=== PATIENT | male | born 1960 | race African-American/Black ===

== ENCOUNTER 2021-06-03 15:07 | Inpatient (IN) | payer OTHER ==
[2021-06-03 17:07] VITALS: BMI 31.1
[2021-06-03] MEDS ORDERED: METHOCARBAMOL 500 MG TABLET PO PRN (17:48)
[2021-06-03] MEDS ORDERED: ACETAMINOPHEN 325 MG TABLET (FP) PO PRN (17:48)
[2021-06-03] MEDS ORDERED: IBUPROFEN 400 MG TABLET (FP) PO PRN (17:48)
[2021-06-03] MEDS ORDERED: MAGNESIUM CITRATE 300 ML BOTTLE PO PRN (17:48)
[2021-06-03] MEDS ORDERED: ONDANSETRON *ODT* 4 MG TABLET SL PRN (17:48)
[2021-06-03] MEDS ORDERED: hydrOXYzine PAMOATE 25 MG CAPSULE (FP) PO PRN (17:48)
[2021-06-03] MEDS ORDERED: BISMUTH SUBSALICYLATE 524 MG/30 ML PO PRN (17:48)
[2021-06-03] MEDS ORDERED: MAGNESIUM HYDROX 2400MG/30ML ORAL SUSPENSION 30 ML CUP PO PRN (17:48)
[2021-06-03] MEDS ORDERED: MAG HYDROX/AL HYDROX/SIMETH 30 ML UNIT-DOSE CUP PO PRN (17:48)
[2021-06-03] MEDS: MELATONIN 5 MG TABLETS PO SCH (22:27)
[2021-06-03] MEDS: THIAMINE HCL 100 MG TABLET (FP) PO SCH (22:27)
[2021-06-04] MEDS ORDERED: chlordiazePOXIDE HCL 25 MG CAPSULE PO PRN (09:19)
[2021-06-04] MEDS: ASPIRIN 81 MG CHEWABLE TABLETS PO SCH (10:21)
[2021-06-04] MEDS: PRENATAL VITAMINS W/ FOLIC ACID TABLET (FP) PO SCH (10:21)
[2021-06-04 10:30] LABS: HEMATOCRIT 36.2 % (35.4-49); MCH 28.3 pg (25.7-33.7); MCHC 33.1 g/dl (32.0-35.9); MEAN CELL VOLUME 85.4 fl (80-96); MEAN PLT VOLUME 8.1 fl (7.5-11.1); PLATELET COUNT 237 10^3/uL (134-434); RBC 4.23 M/mm3 (4.00-5.60); RDW 15.2 % (11.9-15.9); WHITE BLOOD COUNT 3.2 K/mm3 (4.0-10.0)
[2021-06-04 10:35] LABS: CALCIUM 9.4 mg/dL (8.5-10.1)
[2021-06-04 10:36] LABS: ALBUMIN 3.2 g/dl (3.4-5.0)
[2021-06-04 10:37] LABS: BLOOD UREA NITROGEN 14.7 mg/dL (7-18)
[2021-06-04] MEDS: chlordiazePOXIDE HCL 25 MG CAPSULE PO SCH ×4 (10:41→22:28)
[2021-06-04] MEDS: ACETAMINOPHEN 325 MG TABLET (FP) PO PRN ×2 (10:43→23:30)
[2021-06-04 10:46] LABS: BILIRUBIN,TOTAL 0.7 mg/dL (0.2-1)
[2021-06-04] MEDS ORDERED: predniSONE 20 MG TABLET (UD) PO ONE (12:14)
[2021-06-04] MEDS: PANTOPRAZOLE 40 MG TABLET PO SCH (13:48)
[2021-06-04] MEDS: THIAMINE HCL 100 MG TABLET (FP) PO SCH (22:27)
[2021-06-04] MEDS: ATORVASTATIN CA 10 MG TABLET (FP) PO SCH (22:27)
[2021-06-04] MEDS: MELATONIN 5 MG TABLETS PO SCH (22:28)
[2021-06-05] MEDS: chlordiazePOXIDE HCL 25 MG CAPSULE PO SCH ×4 (06:32→22:19)
[2021-06-05] MEDS ORDERED: predniSONE 10 MG TABLET (UD) PO ONE (10:00)
[2021-06-05] MEDS: PRENATAL VITAMINS W/ FOLIC ACID TABLET (FP) PO SCH (10:03)
[2021-06-05] MEDS: ASPIRIN 81 MG CHEWABLE TABLETS PO SCH (10:04)
[2021-06-05] MEDS: PANTOPRAZOLE 40 MG TABLET PO SCH (10:05)
[2021-06-05] MEDS: ACETAMINOPHEN 325 MG TABLET (FP) PO PRN ×2 (10:29→22:22)
[2021-06-05] MEDS: CHOLECALCIFEROL (VIT D3) 1,000 UNIT (25 MCG) TABLET PO SCH (13:59)
[2021-06-05] MEDS: THIAMINE HCL 100 MG TABLET (FP) PO SCH (22:20)
[2021-06-05] MEDS: ATORVASTATIN CA 10 MG TABLET (FP) PO SCH (22:20)
[2021-06-05] MEDS: MELATONIN 5 MG TABLETS PO SCH (22:20)
[2021-06-06] MEDS: chlordiazePOXIDE HCL 25 MG CAPSULE PO SCH ×4 (06:01→22:34)
[2021-06-06] MEDS ORDERED: predniSONE 20 MG TABLET (UD) PO ONE (10:00)
[2021-06-06] MEDS: CHOLECALCIFEROL (VIT D3) 1,000 UNIT (25 MCG) TABLET PO SCH (11:31)
[2021-06-06] MEDS: PANTOPRAZOLE 40 MG TABLET PO SCH (11:31)
[2021-06-06] MEDS: PRENATAL VITAMINS W/ FOLIC ACID TABLET (FP) PO SCH (11:31)
[2021-06-06] MEDS: ASPIRIN 81 MG CHEWABLE TABLETS PO SCH (11:31)
[2021-06-06] MEDS: ALBUTEROL SO4 HFA INHALER IH PRN (13:13)
[2021-06-06] MEDS: ACETAMINOPHEN 325 MG TABLET (FP) PO PRN ×2 (13:16→22:36)
[2021-06-06] MEDS: ATORVASTATIN CA 10 MG TABLET (FP) PO SCH (22:34)
[2021-06-06] MEDS: MELATONIN 5 MG TABLETS PO SCH (22:34)
[2021-06-06] MEDS: THIAMINE HCL 100 MG TABLET (FP) PO SCH (22:34)
[2021-06-07] MEDS ORDERED: chlordiazePOXIDE HCL 10 MG CAPSULE PO PRN
[2021-06-07] MEDS: chlordiazePOXIDE HCL 10 MG CAPSULE PO SCH ×4 (06:22→22:34)
[2021-06-07] MEDS ORDERED: predniSONE 10 MG TABLET (UD) PO ONE (10:00)
[2021-06-07] MEDS: PRENATAL VITAMINS W/ FOLIC ACID TABLET (FP) PO SCH (10:35)
[2021-06-07] MEDS: PANTOPRAZOLE 40 MG TABLET PO SCH (10:35)
[2021-06-07] MEDS: ASPIRIN 81 MG CHEWABLE TABLETS PO SCH (10:35)
[2021-06-07] MEDS: ACETAMINOPHEN 325 MG TABLET (FP) PO PRN ×2 (10:39→20:31)
[2021-06-07] MEDS: CHOLECALCIFEROL (VIT D3) 1,000 UNIT (25 MCG) TABLET PO SCH (11:15)
[2021-06-07] MEDS: MENTHOL/PHENOL 1 EACH UD MM PRN (20:30)
[2021-06-07] MEDS ORDERED: guaiFENesin 200 MG/10 ML 10 ML UNIT-DOSE CUPS PO SCH (21:00)
[2021-06-07] MEDS: ATORVASTATIN CA 10 MG TABLET (FP) PO SCH (22:32)
[2021-06-07] MEDS: THIAMINE HCL 100 MG TABLET (FP) PO SCH (22:34)
[2021-06-07] MEDS: MELATONIN 5 MG TABLETS PO SCH (22:34)
[2021-06-07] MEDS: guaiFENesin 200 MG/10 ML 10 ML UNIT-DOSE CUPS PO SCH (23:00)
[2021-06-08] MEDS: guaiFENesin 200 MG/10 ML 10 ML UNIT-DOSE CUPS PO SCH ×3 (05:59→21:55)
[2021-06-08] MEDS: ACETAMINOPHEN 325 MG TABLET (FP) PO PRN ×2 (05:59→13:38)
[2021-06-08] MEDS: ALBUTEROL SO4 HFA INHALER IH PRN ×3 (06:02→23:20)
[2021-06-08] MEDS: chlordiazePOXIDE HCL 10 MG CAPSULE PO SCH ×2 (06:02→18:40)
[2021-06-08] MEDS ORDERED: predniSONE 5 MG TABLET (UD) PO ONE (10:00)
[2021-06-08] MEDS: ASPIRIN 81 MG CHEWABLE TABLETS PO SCH (11:14)
[2021-06-08] MEDS: PRENATAL VITAMINS W/ FOLIC ACID TABLET (FP) PO SCH (11:14)
[2021-06-08] MEDS: PANTOPRAZOLE 40 MG TABLET PO SCH (11:14)
[2021-06-08] MEDS: CHOLECALCIFEROL (VIT D3) 1,000 UNIT (25 MCG) TABLET PO SCH (11:14)
[2021-06-08] MEDS: MENTHOL/PHENOL 1 EACH UD MM PRN (11:17)
[2021-06-08] MEDS: ALBUTEROL SO4 2.5/IPRATROPIUM 0.5 INH SOL 3 ML VIAL.NEB. NEB PRN (19:37)
[2021-06-08] MEDS: MELATONIN 5 MG TABLETS PO SCH (23:17)
[2021-06-08] MEDS: THIAMINE HCL 100 MG TABLET (FP) PO SCH (23:18)
[2021-06-08] MEDS: ATORVASTATIN CA 10 MG TABLET (FP) PO SCH (23:23)
[2021-06-09] MEDS: guaiFENesin 200 MG/10 ML 10 ML UNIT-DOSE CUPS PO SCH ×4 (02:06→17:57)
[2021-06-09] MEDS: ACETAMINOPHEN 325 MG TABLET (FP) PO PRN ×3 (04:18→22:02)
[2021-06-09] MEDS ORDERED: chlordiazePOXIDE 5 MG CAPSULE ONE (04:35)
[2021-06-09] MEDS ORDERED: chlordiazePOXIDE HCL 10 MG CAPSULE PO ONE (05:00)
[2021-06-09] MEDS: ALBUTEROL SO4 2.5/IPRATROPIUM 0.5 INH SOL 3 ML VIAL.NEB. NEB PRN ×3 (07:54→22:01)
[2021-06-09] MEDS: PANTOPRAZOLE 40 MG TABLET PO SCH (10:31)
[2021-06-09] MEDS: ASPIRIN 81 MG CHEWABLE TABLETS PO SCH (10:31)
[2021-06-09] MEDS: PRENATAL VITAMINS W/ FOLIC ACID TABLET (FP) PO SCH (10:31)
[2021-06-09] MEDS: CHOLECALCIFEROL (VIT D3) 1,000 UNIT (25 MCG) TABLET PO SCH (10:31)
[2021-06-09] MEDS: MENTHOL/PHENOL 1 EACH UD MM PRN (10:33)
[2021-06-09] MEDS: THIAMINE HCL 100 MG TABLET (FP) PO SCH (23:07)
[2021-06-09] MEDS: ATORVASTATIN CA 10 MG TABLET (FP) PO SCH (23:07)
[2021-06-09] MEDS: MELATONIN 5 MG TABLETS PO SCH (23:07)
[2021-06-10] MEDS: guaiFENesin 200 MG/10 ML 10 ML UNIT-DOSE CUPS PO SCH ×2 (00:07→08:27)
[2021-06-10] MEDS: ALBUTEROL SO4 2.5/IPRATROPIUM 0.5 INH SOL 3 ML VIAL.NEB. NEB PRN (09:11)
[2021-06-10] MEDS: PRENATAL VITAMINS W/ FOLIC ACID TABLET (FP) PO SCH (09:11)
[2021-06-10] MEDS: CHOLECALCIFEROL (VIT D3) 1,000 UNIT (25 MCG) TABLET PO SCH (09:11)
[2021-06-10 09:14] VITALS: BP 144/98; PULSE 112; TEMP 97.1
[2021-06-10] MEDS: PANTOPRAZOLE 40 MG TABLET PO SCH (09:14)
[2021-06-10] MEDS: ASPIRIN 81 MG CHEWABLE TABLETS PO SCH (09:14)
== END 2021-06-10 10:25 | disposition other institution (70) | DRG 774 ==
LOC: YASAS 15:07 → Y3N 18:40
PROVIDERS: ADMIT Allergy & Immunology; ATTEND Allergy & Immunology
PROC: HZ2ZZZZ Detoxification Services for Substance Abuse Treatment (ICD-10-PCS; principal; 2021-06-03)
DX: F10.230 Alcohol dependence with withdrawal, uncomplicated (principal); F14.20 Cocaine dependence, uncomplicated; F17.210 Nicotine dependence, cigarettes, uncomplicated; J44.9 Chronic obstructive pulmonary disease, unspecified; K21.9 Gastro-esophageal reflux disease without esophagitis; E46 Unspecified protein-calorie malnutrition; Z68.31 Body mass index [BMI] 31.0-31.9, adult; Z99.89 Dependence on other enabling machines and devices
CPT/HCPCS: 36415; 80053; 85027; 86780; 94640; C9803; U0003; U0005

== ENCOUNTER 2021-10-01 15:53 | Inpatient (IN) | payer OTHER ==
[2021-10-01 17:17] VITALS: BMI 31.0
[2021-10-01] MEDS ORDERED: MAGNESIUM HYDROX 2400MG/30ML ORAL SUSPENSION 30 ML CUP PO PRN (18:11)
[2021-10-01] MEDS ORDERED: ONDANSETRON *ODT* 4 MG TABLET SL PRN (18:11)
[2021-10-01] MEDS ORDERED: MAGNESIUM CITRATE 300 ML BOTTLE PO PRN (18:11)
[2021-10-01] MEDS ORDERED: MAG HYDROX/AL HYDROX/SIMETH 30 ML UNIT-DOSE CUP PO PRN (18:11)
[2021-10-01] MEDS ORDERED: LOPERAMIDE HCL 2 MG CAPSULE PO PRN (18:11)
[2021-10-01] MEDS ORDERED: NICOTINE POLACRILEX 2 MG GUM BUC PRN (18:11)
[2021-10-01] MEDS ORDERED: MELATONIN 5 MG TABLETS PO PRN (18:11)
[2021-10-01] MEDS ORDERED: ACETAMINOPHEN 325 MG TABLET (FP) PO PRN ×2 (18:11)
[2021-10-01] MEDS ORDERED: DICYCLOMINE HCL 10 MG CAPSULE PO PRN (18:11)
[2021-10-01] MEDS ORDERED: BENZOCAINE/MENTHOL (CHLORASEPTIC ) LOZENGE MM PRN (18:11)
[2021-10-01] MEDS: THIAMINE HCL 100 MG TABLET (FP) PO SCH (23:34)
[2021-10-02] MEDS ORDERED: ALBUTEROL SO4 HFA INHALER IH PRN (06:41)
[2021-10-02] MEDS ORDERED: WARFARIN NA 10 MG TABLET PO SCH (06:43)
[2021-10-02] MEDS ORDERED: WARFARIN NA 2 MG TABLET PO SCH (06:43)
[2021-10-02 10:52] LABS: HEMATOCRIT 38.3 % (35.4-49); HEMOGLOBIN 12.7 GM/dL (11.7-16.9); MCH 28.3 pg (25.7-33.7); MCHC 33.2 g/dl (32.0-35.9); MEAN CELL VOLUME 85.3 fl (80-96); MEAN PLT VOLUME 8.2 fl (7.5-11.1); PLATELET COUNT 277 10^3/uL (134-434); RDW 14.9 % (11.9-15.9); WHITE BLOOD COUNT 3.2 K/mm3 (4.0-10.0)
[2021-10-02] MEDS: hydrOXYzine PAMOATE 25 MG CAPSULE (FP) PO PRN ×2 (10:54→22:58)
[2021-10-02] MEDS: PRENATAL VITAMINS W/ FOLIC ACID TABLET (FP) PO SCH (10:54)
[2021-10-02] MEDS: METHOCARBAMOL 500 MG TABLET PO PRN (10:54)
[2021-10-02 11:07] LABS: INR 1.88 (0.83-1.09); PROTHROMBIN TIME (PATIENT) 21.7 SEC (9.7-13.0)
[2021-10-02 11:13] LABS: CALCIUM 9.1 mg/dL (8.5-10.1)
[2021-10-02 11:14] LABS: ALBUMIN 3.4 g/dl (3.4-5.0); BLOOD UREA NITROGEN 10.5 mg/dL (7-18)
[2021-10-02 11:18] LABS: TOT PROT 6.5 g/dl (6.4-8.2)
[2021-10-02 11:19] LABS: BILIRUBIN,TOTAL 1.5 mg/dL (0.2-1)
[2021-10-02] MEDS: WARFARIN NA 10 MG, WARFARIN NA 2 MG PO SCH (14:50)
[2021-10-02] MEDS ORDERED: ATORVASTATIN CA 10 MG TABLET (FP) PO SCH (22:00)
[2021-10-02] MEDS: THIAMINE HCL 100 MG TABLET (FP) PO SCH (22:57)
[2021-10-03] MEDS: METHOCARBAMOL 500 MG TABLET PO PRN (05:30)
[2021-10-03] MEDS: WARFARIN NA 10 MG, WARFARIN NA 2 MG PO SCH (06:35)
[2021-10-03 07:37] VITALS: TEMP 97.3
[2021-10-03 09:50] VITALS: BP 128/92; PULSE 79
[2021-10-03] MEDS ORDERED: LIDOCAINE 5% TOPICAL PATCH TP SCH (10:00)
[2021-10-03] MEDS: PRENATAL VITAMINS W/ FOLIC ACID TABLET (FP) PO SCH (10:58)
[2021-10-03] MEDS ORDERED: LIDOCAINE PATCH REMOVAL MC SCH (22:00)
== END 2021-10-03 12:05 | disposition home or self-care (01) | DRG 774 ==
LOC: YASAS 15:53 → Y6N 19:18
PROVIDERS: ADMIT Allergy & Immunology; ATTEND Surgery
PROC: HZ2ZZZZ Detoxification Services for Substance Abuse Treatment (ICD-10-PCS; principal; 2021-10-01)
DX: F10.230 Alcohol dependence with withdrawal, uncomplicated (principal); F14.10 Cocaine abuse, uncomplicated; F17.210 Nicotine dependence, cigarettes, uncomplicated; I82.503 Chronic embolism and thrombosis of unspecified deep veins of lower extremity, bilateral; Z79.01 Long term (current) use of anticoagulants; R60.0 Localized edema; Z99.89 Dependence on other enabling machines and devices
CPT/HCPCS: 36415; 80053; 85027; 85610; 86780; C9803-CS; U0003; U0005

== ENCOUNTER 2024-08-16 19:47 | Inpatient (IN) | payer OTHER ==
[2024-08-16 21:02] VITALS: BMI 30.7
[2024-08-16] MEDS ORDERED: POLYETHYLENE GLYCOL (HEALTHYLAX) 3350 17 GM PACKET PO PRN (21:54)
[2024-08-16] MEDS ORDERED: BENZONATATE 200 MG CAPSULE PO PRN (21:54)
[2024-08-16] MEDS ORDERED: guaiFENesin 600 MG TABLET.ER (FP) PO PRN (21:54)
[2024-08-16] MEDS ORDERED: BENZOCAINE/MENTHOL (CHLORASEPTIC ) LOZENGE MM PRN (21:54)
[2024-08-16] MEDS ORDERED: NICOTINE POLACRILEX 2 MG GUM BUC PRN (21:54)
[2024-08-16] MEDS ORDERED: NALOXONE (NARCAN) HCL 4 MG/0.1 ML SPRAY NS PRN (21:54)
[2024-08-16] MEDS ORDERED: IBUPROFEN 400 MG TABLET (FP) PO PRN (21:54)
[2024-08-16] MEDS ORDERED: BISMUTH SUBSALICYLATE 524 MG/30 ML PO PRN (21:54)
[2024-08-16] MEDS ORDERED: IBUPROFEN 600 MG TABLET (FP) PO PRN (21:54)
[2024-08-16] MEDS ORDERED: MAG HYDROX/AL HYDROX/SIMETH 30 ML UNIT-DOSE CUP PO PRN (21:54)
[2024-08-16] MEDS ORDERED: LOPERAMIDE HCL 2 MG CAPSULE PO PRN (21:54)
[2024-08-16] MEDS ORDERED: ONDANSETRON *ODT* 4 MG TABLET SL PRN (21:54)
[2024-08-16] MEDS ORDERED: MAGNESIUM HYDROX 2400MG/30ML ORAL SUSPENSION 30 ML CUP PO PRN (21:54)
[2024-08-16] MEDS: MELATONIN 5 MG TABLETS PO SCH (23:06)
[2024-08-16] MEDS: THIAMINE 100 MG TABLET PO SCH (23:07)
[2024-08-17] MEDS ORDERED: ALBUTEROL SO4 HFA INHALER IH ONE (08:20)
[2024-08-17] MEDS: NICOTINE 14 MG/24 HOURS TOPICAL PATCH TD SCH (09:00)
[2024-08-17] MEDS: PRENATAL VITAMINS W/ FOLIC ACID TABLET (FP) PO SCH (09:01)
[2024-08-17] MEDS: PANTOPRAZOLE 40 MG TABLET PO SCH (09:40)
[2024-08-17 15:28] LABS: INR 2.01 (0.83-1.09); PROTHROMBIN TIME (PATIENT) 22.1 SEC (9.7-13.0)
[2024-08-17 15:38] LABS: ACTIVATED PTT 39.6 SECONDS (25.2-36.5)
[2024-08-17] MEDS: WARFARIN NA 2 MG TABLET PO SCH (20:26)
[2024-08-17] MEDS: ATORVASTATIN CA 40 MG TABLET (FP) PO SCH (23:07)
[2024-08-17] MEDS: ALBUTEROL SO4 HFA INHALER IH PRN (23:11)
[2024-08-18] MEDS: ACETAMINOPHEN 325 MG TABLET (FP) PO PRN (03:19)
[2024-08-18] MEDS: LORazepam 1 MG TABLET PO SCH (10:25)
[2024-08-18] MEDS ORDERED: ALBUTEROL SO4 2.5/IPRATROPIUM 0.5 INH SOL 3 ML VIAL.NEB. NEB ONE (13:19)
[2024-08-18] MEDS: TAMSULOSIN HCL 0.4 MG CAP PO SCH (15:24)
[2024-08-18] MEDS: ALBUTEROL SO4 2.5/IPRATROPIUM 0.5 INH SOL 3 ML VIAL.NEB. NEB PRN (20:44)
[2024-08-18] MEDS ORDERED: ATORVASTATIN CA 40 MG TABLET (FP) PO SCH (22:00)
[2024-08-18] MEDS: BUDESONIDE/FORMETEROL FUMARATE 160/4.5 mcg INHALER IH SCH (22:34)
[2024-08-18] MEDS: GABAPENTIN 300 MG CAPSULE PO SCH (22:40)
[2024-08-19] MEDS ORDERED: LORazepam 1 MG TABLET PO SCH (05:00)
[2024-08-19] MEDS: LORazepam 0.5 MG TABLET PO SCH (05:43)
[2024-08-19] MEDS: LORazepam 1 MG TABLET PO SCH (06:00)
[2024-08-19] MEDS: PANTOPRAZOLE 40 MG TABLET PO ONE ×2 (08:55→12:09)
[2024-08-19] MEDS: LIDOCAINE 5% TOPICAL PATCH TP SCH (10:18)
[2024-08-19 11:45] LABS: INR 1.19 (0.83-1.09); PROTHROMBIN TIME (PATIENT) 13.1 SEC (9.7-13.0)
[2024-08-19] MEDS ORDERED: WARFARIN NA 5 MG TABLET PO SCH (18:00)
[2024-08-19] MEDS: WARFARIN NA 3 MG TABLET PO SCH (18:48)
[2024-08-19] MEDS: LIDOCAINE PATCH REMOVAL MC SCH (22:36)
[2024-08-20] MEDS ORDERED: LORazepam 0.5 MG TABLET PO PRN
[2024-08-20] MEDS: LORazepam 0.5 MG TABLET PO ONE (05:40)
[2024-08-20 06:03] VITALS: TEMP 97.6
[2024-08-20] MEDS: PANTOPRAZOLE 40 MG TABLET PO SCH (07:30)
[2024-08-20 11:06] VITALS: BP 142/92; PULSE 102; RESP 17
[2024-08-20] MEDS ORDERED: WARFARIN NA 5 MG, WARFARIN NA 4 MG PO SCH (18:00)
[2024-08-20] MEDS ORDERED: traZODone HCL 100 MG TABLET (FP) PO SCH (22:00)
== END 2024-08-20 12:10 | disposition other institution (70) | DRG 774 ==
LOC: YASAS 19:47 → Y3N 22:41
PROVIDERS: ADMIT Allergy & Immunology; ATTEND Allergy & Immunology
PROC: HZ2ZZZZ Detoxification Services for Substance Abuse Treatment (ICD-10-PCS; principal; 2024-08-16)
DX: F10.230 Alcohol dependence with withdrawal, uncomplicated (principal); F14.20 Cocaine dependence, uncomplicated; F17.210 Nicotine dependence, cigarettes, uncomplicated; F19.282 Other psychoactive substance dependence with psychoactive substance-induced sleep disorder; F32.A Depression, unspecified; E78.5 Hyperlipidemia, unspecified; J44.9 Chronic obstructive pulmonary disease, unspecified; Z86.718 Personal history of other venous thrombosis and embolism; Z79.01 Long term (current) use of anticoagulants
CPT/HCPCS: 36415; 80305; 85610; 85730; 86780; 87811; 93005; 93010; 94640

== ENCOUNTER 2024-08-20 12:14 | Inpatient (IN) | payer OTHER ==
[2024-08-20] MEDS ORDERED: MAG HYDROX/AL HYDROX/SIMETH 30 ML UNIT-DOSE CUP PO PRN (14:24)
[2024-08-20] MEDS ORDERED: POLYETHYLENE GLYCOL (HEALTHYLAX) 3350 17 GM PACKET PO PRN (14:24)
[2024-08-20] MEDS ORDERED: IBUPROFEN 600 MG TABLET (FP) PO PRN (14:24)
[2024-08-20] MEDS ORDERED: hydrOXYzine PAMOATE 25 MG CAPSULE (FP) PO PRN (14:24)
[2024-08-20] MEDS ORDERED: LOPERAMIDE HCL 2 MG CAPSULE PO PRN (14:24)
[2024-08-20] MEDS ORDERED: MAGNESIUM HYDROX 2400MG/30ML ORAL SUSPENSION 30 ML CUP PO PRN (14:24)
[2024-08-20] MEDS ORDERED: BENZONATATE 200 MG CAPSULE PO PRN (14:24)
[2024-08-20] MEDS ORDERED: guaiFENesin 600 MG TABLET.ER (FP) PO PRN (14:24)
[2024-08-20] MEDS ORDERED: NICOTINE POLACRILEX 2 MG GUM BUC PRN (14:28)
[2024-08-20] MEDS: ALBUTEROL SO4 2.5/IPRATROPIUM 0.5 INH SOL 3 ML VIAL.NEB. NEB SCH (14:55)
[2024-08-20] MEDS: ALBUTEROL SO4 HFA INHALER IH SCH (14:55)
[2024-08-20] MEDS: WARFARIN NA 3 MG TABLET PO SCH (17:40)
[2024-08-20] MEDS: ALBUTEROL SO4 2.5/IPRATROPIUM 0.5 INH SOL 3 ML VIAL.NEB. NEB PRN (18:15)
[2024-08-20] MEDS: LIDOCAINE PATCH REMOVAL MC SCH (22:40)
[2024-08-20] MEDS: ATORVASTATIN CA 40 MG TABLET (FP) PO SCH (22:41)
[2024-08-20] MEDS: THIAMINE 100 MG TABLET PO SCH (22:41)
[2024-08-20] MEDS: BUDESONIDE/FORMETEROL FUMARATE 160/4.5 mcg INHALER IH SCH (22:42)
[2024-08-20] MEDS: MELATONIN 5 MG TABLETS PO SCH (22:42)
[2024-08-20] MEDS: GABAPENTIN 300 MG CAPSULE PO SCH (22:42)
[2024-08-21] MEDS: PRENATAL VITAMINS W/ FOLIC ACID TABLET (FP) PO SCH (06:08)
[2024-08-21] MEDS: METHOCARBAMOL 500 MG TABLET PO PRN (06:11)
[2024-08-21] MEDS: PANTOPRAZOLE 40 MG TABLET PO SCH (07:18)
[2024-08-21 09:14] LABS: INR 1.38 (0.83-1.09); PROTHROMBIN TIME (PATIENT) 15.2 SEC (9.7-13.0)
[2024-08-21] MEDS: LIDOCAINE 5% TOPICAL PATCH TP SCH (09:15)
[2024-08-21] MEDS: TAMSULOSIN HCL 0.4 MG CAP PO SCH (09:15)
[2024-08-21] MEDS: NICOTINE 14 MG/24 HOURS TOPICAL PATCH TD SCH (09:16)
[2024-08-21] MEDS: ALBUTEROL SO4 HFA INHALER IH PRN (09:19)
[2024-08-22 10:44] LABS: INR 1.61 (0.83-1.09); PROTHROMBIN TIME (PATIENT) 17.6 SEC (9.7-13.0)
[2024-08-22] MEDS: THIAMINE 100 MG TABLET PO SCH (21:22)
[2024-08-22] MEDS: traZODone HCL 100 MG TABLET (FP) PO SCH (21:23)
[2024-08-22] MEDS: WARFARIN NA 3 MG TABLET PO SCH (21:28)
[2024-08-22] MEDS: ATORVASTATIN CA 40 MG TABLET (FP) PO SCH (21:29)
[2024-08-23 12:02] LABS: INR 1.56 (0.83-1.09); PROTHROMBIN TIME (PATIENT) 17.2 SEC (9.7-13.0)
[2024-08-23] MEDS: ACETAMINOPHEN 325 MG TABLET (FP) PO PRN (15:07)
[2024-08-23] MEDS ORDERED: GABAPENTIN 100 MG CAPSULE PO SCH (15:30)
[2024-08-23] MEDS: GABAPENTIN 300 MG CAPSULE PO SCH (17:12)
[2024-08-23] MEDS: GABAPENTIN 100 MG CAPSULE PO PRN (17:31)
[2024-08-24] MEDS: PANTOPRAZOLE 40 MG TABLET PO SCH (06:15)
[2024-08-24] MEDS ORDERED: NICOTINE POLACRILEX 4 MG GUM BUC PRN (12:06)
[2024-08-24] MEDS: GABAPENTIN 100 MG CAPSULE PO SCH (15:28)
[2024-08-24] MEDS: SALICYLIC ACID (WART REMOVER) 9 ML LIQUID TP SCH (15:31)
[2024-08-24] MEDS: ACAMPROSATE CALCIUM 333 MG TABLET.DR PO SCH (15:32)
[2024-08-24] MEDS ORDERED: WARFARIN NA 5 MG TABLET PO SCH (18:00)
[2024-08-24] MEDS: WARFARIN NA 5 MG TABLET PO SCH (22:35)
[2024-08-25 16:49] LABS: INR 2.3 (0.83-1.09); PROTHROMBIN TIME (PATIENT) 25.3 SEC (9.7-13.0)
[2024-08-26 12:42] LABS: INR 2.41 (0.83-1.09); PROTHROMBIN TIME (PATIENT) 26.3 SEC (9.7-13.0)
[2024-08-27 09:43] LABS: INR 2.28 (0.83-1.09); PROTHROMBIN TIME (PATIENT) 25.1 SEC (9.7-13.0)
[2024-08-28 09:24] LABS: INR 2.65 (0.83-1.09); PROTHROMBIN TIME (PATIENT) 28.9 SEC (9.7-13.0)
[2024-08-29 11:32] LABS: INR 2.8 (0.83-1.09); PROTHROMBIN TIME (PATIENT) 30.5 SEC (9.7-13.0)
[2024-08-29] MEDS: VITAMINS A AND D TOPICAL OINTMENT TP SCH (18:21)
[2024-08-29] MEDS: WARFARIN NA 3 MG TABLET PO SCH (22:31)
[2024-08-30 11:42] LABS: INR 2.56 (0.83-1.09); PROTHROMBIN TIME (PATIENT) 28.2 SEC (9.7-13.0)
[2024-08-30] MEDS: GABAPENTIN 300 MG CAPSULE PO SCH (14:12)
[2024-08-30] MEDS: VITAMINS A AND D TOPICAL OINTMENT TP SCH (18:18)
[2024-08-31 14:10] LABS: INR 2.21 (0.83-1.09); PROTHROMBIN TIME (PATIENT) 24.1 SEC (9.7-13.0)
[2024-08-31] MEDS: SALICYLIC ACID (WART REMOVER) 9 ML LIQUID TP SCH (21:27)
[2024-09-01 11:16] LABS: INR 2.12 (0.83-1.09); PROTHROMBIN TIME (PATIENT) 23.3 SEC (9.7-13.0)
[2024-09-02 10:43] LABS: INR 2.4 (0.83-1.09); PROTHROMBIN TIME (PATIENT) 26.2 SEC (9.7-13.0)
[2024-09-02] MEDS ORDERED: WARFARIN NA 3 MG TABLET PO ONE (22:00)
[2024-09-03] MEDS: ALBUTEROL SO4 2.5/IPRATROPIUM 0.5 INH SOL 3 ML VIAL.NEB. NEB PRN (05:44)
[2024-09-03 10:31] LABS: INR 2.75 (0.83-1.09); PROTHROMBIN TIME (PATIENT) 30.2 SEC (9.7-13.0)
[2024-09-04 10:23] LABS: INR 2.67 (0.83-1.09); PROTHROMBIN TIME (PATIENT) 29.1 SEC (9.7-13.0)
[2024-09-05 09:50] LABS: INR 2.89 (0.83-1.09); PROTHROMBIN TIME (PATIENT) 31.8 SEC (9.7-13.0)
[2024-09-05] MEDS: WARFARIN NA 5 MG, WARFARIN NA 3 MG PO SCH (21:21)
[2024-09-05] MEDS ORDERED: WARFARIN NA 3 MG TABLET PO SCH (22:00)
[2024-09-06 09:19] LABS: INR 0.96 (0.83-1.09); PROTHROMBIN TIME (PATIENT) 10.6 SEC (9.7-13.0)
[2024-09-06] MEDS: FLUTICASONE PROP 0.05% 16 GM NASAL SPRAY NS SCH (13:40)
[2024-09-06] MEDS: WARFARIN NA 3 MG TABLET PO ONE (22:25)
[2024-09-07 10:24] LABS: INR 3.12 (0.83-1.09); PROTHROMBIN TIME (PATIENT) 34.3 SEC (9.7-13.0)
[2024-09-07] MEDS: ACAMPROSATE CALCIUM 333 MG TABLET.DR PO SCH (15:05)
[2024-09-07] MEDS: GABAPENTIN 100 MG CAPSULE PO SCH (15:05)
[2024-09-07] MEDS: WARFARIN NA 3 MG TABLET PO SCH (17:38)
[2024-09-08 11:43] LABS: INR 3.06 (0.83-1.09); PROTHROMBIN TIME (PATIENT) 33.4 SEC (9.7-13.0)
[2024-09-08] MEDS ORDERED: WARFARIN NA 3 MG TABLET PO SCH (13:24)
[2024-09-08] MEDS: WARFARIN NA 5 MG, WARFARIN NA 3 MG PO SCH (17:06)
[2024-09-09] MEDS ORDERED: VITAMINS A AND D TOPICAL OINTMENT TP PRN (09:11)
[2024-09-09 10:07] LABS: INR 2.03 (0.83-1.09); PROTHROMBIN TIME (PATIENT) 22.3 SEC (9.7-13.0)
[2024-09-10] MEDS: BENZOCAINE/MENTHOL (CHLORASEPTIC ) LOZENGE MM PRN (00:05)
[2024-09-12 06:46] VITALS: RESP 16; TEMP 97.9
[2024-09-12 09:16] VITALS: BP 139/84; PULSE 88
== END 2024-09-12 10:35 | disposition home or self-care (01) | DRG 772 ==
LOC: YASAS 12:14 → Y3NR 12:15 → Y5N 08-22 11:48
PROVIDERS: ADMIT Psychiatry & Neurology Pain Medicine; ATTEND Psychiatry & Neurology Pain Medicine
PROC: HZ42ZZZ Group Counseling for Substance Abuse Treatment, Cognitive-Behavioral (ICD-10-PCS; principal; 2024-08-19)
DX: F10.20 Alcohol dependence, uncomplicated (principal); F14.20 Cocaine dependence, uncomplicated; F17.210 Nicotine dependence, cigarettes, uncomplicated; F19.282 Other psychoactive substance dependence with psychoactive substance-induced sleep disorder; F32.A Depression, unspecified; E78.5 Hyperlipidemia, unspecified; J44.9 Chronic obstructive pulmonary disease, unspecified; J45.40 Moderate persistent asthma, uncomplicated; I82.403 Acute embolism and thrombosis of unspecified deep veins of lower extremity, bilateral; Z79.01 Long term (current) use of anticoagulants; M54.50 Low back pain, unspecified; G89.29 Other chronic pain
CPT/HCPCS: 36415; 73630-TC-RT-FY; 85610; 86803; 94640